=== PATIENT | female | born 1985 | race African-American/Black ===

== ENCOUNTER 2019-07-25 17:22 | Emergency (ER) | payer OTHER ==
[2019-07-25 17:34] VITALS: BP 124/51; PULSE 76; TEMP 98; BMI 26.5
--- NOTE | 2019-07-25 19:32 | PDOC ---
Attending Attestation - Resident Resident Name: NguyễnTheron - ED Attending Attestation I have performed the following: I have examined & evaluated the patient, The case was reviewed & discussed with the resident, I agree w/resident's findings & plan - HPI HPI: 07/25/19 20:34 see resident hpi - Physicial Exam PE: 07/25/19 20:34 agree with resident exam - Medical Decision Making 07/25/19 20:34 34-year-old female with a drop of blood on her underwear possibly associated with urination and mild dysuria status post recent pelvic exam Cervical culture sent Patient unable to provide urine sample We will discharge on course of antibiotics for symptomatic UTI 

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
[2019-07-25] MEDS ORDERED: PRESCRIPTION PAD 1 EACH EACH NR ONE (20:39)
== END 2019-07-25 21:12 | disposition home or self-care (01) ==
LOC: JER 17:22
DX: N39.0 Urinary tract infection, site not specified (principal)
CPT/HCPCS: 36415; 84703; 86850; 86900; 86901; 87110; 87491; 87591; 87661; 99283-25